=== PATIENT | female | born 1980 | race Caucasian/White ===

== ENCOUNTER 2017-05-14 20:58 | Emergency (ER) | payer OTHER ==
[~2017-05-14] VITALS: Ht 154.9 cm; Wt 63.5 kg
[~2017-05-14 20:58] MED LIST: CHOL400T2 PO; HYDR10TA4 PO; VENL37.52 PO
[2017-05-14 21:05] VITALS: BP 127/81
[2017-05-14 21:53] LABS: HEMATOCRIT 40.7 % (34.6-47.8); HEMOGLOBIN 13.8 g/dL (11.7-16.4); WHITE BLOOD COUNT 12.7 x10^3/uL (3.4-10)
[2017-05-14 22:03] LABS: ASPARTATE AMINO TRANSFERASE 11 U/L (15-37); BLOOD UREA NITROGEN 15 mg/dL (7-18)
[2017-05-14 22:29] LABS: IS PT STATUS REG ER OR PRE ER? YES
== END 2017-05-15 00:51 | disposition home or self-care (01) ==
LOC: ED 21:55
DX: R07.2 Precordial pain (principal)
CPT/HCPCS: 36415; 71010; 80053; 83690; 84484; 84703; 85025; 93005; 99285

== ENCOUNTER → 2017-07-18 | Outpatient (CLI) | payer OTHER | END | disposition home or self-care (01) | LOC: CVU 12:15 | PROVIDERS: ATTEND Internal Medicine Cardiovascular Disease | DX: R00.2 Palpitations (principal); R07.89 Other chest pain | CPT/HCPCS: 93306 ==